=== PATIENT | female | born 1970 | race Caucasian/White ===

== ENCOUNTER 2020-08-06 18:27 | Inpatient (IN) | payer OTHER ==
[2020-08-06 18:48] LABS: BASOPHIL 0.5 % (0-2); EOSINOPHIL 0.1 % (0-5); HCT 33.4 % (37.0-47.0); HGB 11.6 g/dl (12.5-16.0); LYMPHOCYTE 19.4 % (15-48); MCH 31.1 pg (25.0-31.0); MCHC 34.7 g/dL (32.0-36.0); MCV 89.5 fL (78.0-100.0); MPV 8.9 fL (6.0-9.5); NEUTROPHIL 69.6 % (41-80); NRBC 0; PLT 315 K/uL (150-400); RBC 3.73 M/uL (4.20-5.40); RDW 12.2 % (11.5-14.0); WBC 7.4 K/uL (4.0-10.5)
[2020-08-06 18:59] LABS: ALBUMIN 3.1 g/dL (3.4-5.0); BILIRUBIN - TOTAL 0.4 mg/dL (0.2-1.0); BUN/CREAT RATIO (CALC) 12.2 RATIO; CREATININE 0.9 mg/dL (0.51-0.95); GLOBULIN (CALCULATION) 3.6 g/dL; POTASSIUM 4.3 mmol/L (3.5-5.1); TOTAL PROTEIN 6.7 g/dL (6.4-8.2)
[2020-08-06 20:01] LABS: MAGNESIUM 1.6 mg/dL (1.8-2.4); PHOSPHORUS 4.4 mg/dL (2.6-4.7)
[2020-08-06 20:11] LABS: PRO-BNP 303 pg/mL (<125)
[2020-08-06 21:33] LABS: BILIRUBIN NEGATIVE (NEGATIVE); BLOOD 3+ Ery/uL (NEGATIVE); CLARITY CLOUDY (CLEAR); COLOR YELLOW (YELLOW); GLUCOSE (U) NORMAL (NORMAL); LEUKOCYTES 1+ Leu/uL (NEGATIVE); NITRITE POSITIVE (NEGATIVE); PROTEIN 2+ mg/dL (NEGATIVE); SPECIFIC GRAVITY >=1.030 (1.001-1.030); UROBILINOGEN 0.2 mg/dL (0.2-1.0)
[2020-08-06 21:39] LABS: BACTERIA 3+; SQUAMOUS EPITHELIAL CELLS 20-50
[2020-08-06 21:44] LABS: FT4 (FREE T4) 1.3 ng/dL (0.76-1.46)
[2020-08-06] MEDS ORDERED: TRAZODONE 50MG50 MG PO (22:27)
[2020-08-06] MEDS ORDERED: ELAVIL50 MG PO (22:28)
[2020-08-06] MEDS ORDERED: PEPCID AC20 MG PO (22:28)
[2020-08-06] MEDS ORDERED: TOPROL XL 25MG25 MG PO (22:31)
[2020-08-06] MEDS ORDERED: METFORMIN HCL500 MG PO (22:31)
[2020-08-06] MEDS ORDERED: MAGNESIUM500 MG PO (22:32)
[2020-08-06] MEDS ORDERED: ONDANSETRON HCL4 MG PO (22:33)
[2020-08-06] MEDS ORDERED: BASAGLAR K100 UNIT/1 SC (22:34)
[2020-08-06 23:29] LABS: BUN/CREAT RATIO (CALC) 15.2 RATIO; CREATININE 0.79 mg/dL (0.51-0.95); POTASSIUM 4.5 mmol/L (3.5-5.1)
[2020-08-07 03:17] LABS: HCT 28.3 % (37.0-47.0); HGB 9.9 g/dl (12.5-16.0); MCH 30.7 pg (25.0-31.0); MCV 87.6 fL (78.0-100.0); MPV 9.2 fL (6.0-9.5); RBC 3.23 M/uL (4.20-5.40); RDW 11.9 % (11.5-14.0); WBC 5.7 K/uL (4.0-10.5)
[2020-08-07 03:25] LABS: BUN/CREAT RATIO (CALC) 13.9 RATIO; CREATININE 0.79 mg/dL (0.51-0.95); POTASSIUM 4.2 mmol/L (3.5-5.1)
[2020-08-07 03:49] LABS: URINE CREATININE 32.68 mg/dL (29.00-226.00)
[2020-08-07 07:45] LABS: BUN/CREAT RATIO (CALC) 12.5 RATIO; CREATININE 0.72 mg/dL (0.51-0.95)
[2020-08-07 11:12] LABS: BUN/CREAT RATIO (CALC) 10.7 RATIO; CREATININE 0.84 mg/dL (0.51-0.95); POTASSIUM 4.2 mmol/L (3.5-5.1)
[2020-08-07 15:09] LABS: BUN/CREAT RATIO (CALC) 8.9 RATIO; CREATININE 0.79 mg/dL (0.51-0.95); POTASSIUM 4.2 mmol/L (3.5-5.1)
--- NOTE | 2020-08-07 15:57 | NUR ---
08/07/20 Ms. Jovel lives with her mother and adult nephew. She has a rw. 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 She had an outpatient PT appointment in [place] with [facility] and cancelled the appointment due to illness. MS. Jovel will independently reschedule her PT appointment.
[2020-08-07 19:30] LABS: BUN/CREAT RATIO (CALC) 6.8 RATIO; CREATININE 1.03 mg/dL (0.51-0.95); POTASSIUM 3.9 mmol/L (3.5-5.1)
[2020-08-08 01:07] LABS: BUN/CREAT RATIO (CALC) 7.1 RATIO; CREATININE 0.98 mg/dL (0.51-0.95); POTASSIUM 3.9 mmol/L (3.5-5.1)
[2020-08-08 06:51] LABS: BASOPHIL 0.5 % (0-2); EOSINOPHIL 0.2 % (0-5); HCT 26.4 % (37.0-47.0); HGB 9.2 g/dl (12.5-16.0); MCH 31.6 pg (25.0-31.0); MCHC 34.8 g/dL (32.0-36.0); MCV 90.7 fL (78.0-100.0); MONOCYTE 12.4 % (0-12); MPV 8.6 fL (6.0-9.5); NEUTROPHIL 48.7 % (41-80); NRBC 0; PLT 211 K/uL (150-400); RBC 2.91 M/uL (4.20-5.40); RDW 12.3 % (11.5-14.0); WBC 4.3 K/uL (4.0-10.5)
[2020-08-08 07:21] LABS: BUN/CREAT RATIO (CALC) 5.7 RATIO; CREATININE 0.88 mg/dL (0.51-0.95)
[2020-08-08 13:45] LABS: BUN/CREAT RATIO (CALC) 5.9 RATIO; CREATININE 1.01 mg/dL (0.51-0.95); POTASSIUM 3.8 mmol/L (3.5-5.1)
[2020-08-08 19:37] LABS: BUN/CREAT RATIO (CALC) 4.6 RATIO; CREATININE 1.09 mg/dL (0.51-0.95); POTASSIUM 4.1 mmol/L (3.5-5.1)
[2020-08-09 04:00] LABS: BASOPHIL 0.4 % (0-2); EOSINOPHIL 0.2 % (0-5); HCT 26.2 % (37.0-47.0); HGB 8.9 g/dl (12.5-16.0); LYMPHOCYTE 40.1 % (15-48); MCH 31.1 pg (25.0-31.0); MCV 91.6 fL (78.0-100.0); MONOCYTE 12.5 % (0-12); NEUTROPHIL 46.2 % (41-80); NRBC 0; PLT 236 K/uL (150-400); RBC 2.86 M/uL (4.20-5.40); RDW 12.2 % (11.5-14.0); WBC 4.9 K/uL (4.0-10.5)
[2020-08-09 04:20] LABS: BUN/CREAT RATIO (CALC) 5.3 RATIO; CREATININE 0.94 mg/dL (0.51-0.95); POTASSIUM 4.1 mmol/L (3.5-5.1)
[2020-08-09 18:57] LABS: BUN/CREAT RATIO (CALC) 5.9 RATIO; CREATININE 0.85 mg/dL (0.51-0.95); POTASSIUM 3.8 mmol/L (3.5-5.1)
[2020-08-10 06:16] LABS: BUN/CREAT RATIO (CALC) 4.9 RATIO; CREATININE 0.82 mg/dL (0.51-0.95); POTASSIUM 3.8 mmol/L (3.5-5.1)
[2020-08-10] MEDS ORDERED: TOPROL XL 50 MG50 MG PO (07:26)
== END 2020-08-10 10:55 | disposition home or self-care (01) | DRG 641 ==
LOC: FER 18:27 → FICU 21:23 → FMS 08-07 08:54
PROVIDERS: Emergency Medicine; Emergency Medicine Emergency Medical Services; Hospitalist; Internal Medicine Nephrology; ADMIT Allergy & Immunology Allergy
DX: E87.1 Hypo-osmolality and hyponatremia (principal); N39.0 Urinary tract infection, site not specified; L97.518 Non-pressure chronic ulcer of other part of right foot with other specified severity; E83.42 Hypomagnesemia; R11.2 Nausea with vomiting, unspecified; R19.7 Diarrhea, unspecified; M10.9 Gout, unspecified; K21.9 Gastro-esophageal reflux disease without esophagitis; Z20.822 Contact with and (suspected) exposure to COVID-19; I11.0 Hypertensive heart disease with heart failure; I50.9 Heart failure, unspecified; E11.621 Type 2 diabetes mellitus with foot ulcer; E86.9 Volume depletion, unspecified; B96.1 Klebsiella pneumoniae [K. pneumoniae] as the cause of diseases classified elsewhere
CPT/HCPCS: 36415; 70450; 71045; 80048; 80053; 81001; 82570; 83735; 83880; 83935; 84100; 84133; 84145; 84300; 84439; 84443; 84484; 85025; 85379; 87040; 87076; 87088; 87186; 93005; 94010; 97110; 97162; 97166; 97530-GP; 97535; J0692; J1200; J1650; J2405; J3475; J7030; J7070; U0002

== ENCOUNTER → 2022-03-10 | Day surgery (SDC) | payer OTHER ==
[~2022-03-10] VITALS: Ht 182.9 cm; Wt 73.7 kg
[~2022-03-10] MED LIST: ATORVASTATIN CA10 MG PO; BASAGLAR K100 UNIT/1 SC; ELAVIL50 MG PO; GABAPENTIN600 MG PO; LANTUS SOL100 UNIT/1 SC; LASIX40 MG PO; LISINOPRIL5 MG PO; MAGNESIUM500 MG PO; METFORMIN HCL500 MG PO; ONDANSETRON HCL4 MG PO; OZEMPIC1 MG/0.71 SC; PEPCID AC20 MG PO; TOPROL XL 25MG25 MG PO; TOPROL XL 50 MG50 MG PO; TRAZODONE 50MG50 MG PO
[2022-03-10 08:42] LABS: HCT 41.8 % (37.0-47.0); HGB 14.6 g/dl (12.5-16.0); MCH 30.2 pg (25.0-31.0); MCHC 34.9 g/dL (32.0-36.0); MCV 86.4 fL (78.0-100.0); MPV 9.1 fL (6.0-9.5); RBC 4.84 M/uL (4.20-5.40); RDW 13.1 % (11.5-14.0); WBC 8.9 K/uL (4.0-10.5)
[2022-03-10 08:53] LABS: ALBUMIN 4.1 g/dL (3.4-5.0); BILIRUBIN - TOTAL 0.4 mg/dL (0.2-1.0); BUN/CREAT RATIO (CALC) 13.1 RATIO; CREATININE 0.61 mg/dL (0.51-0.95); GLOBULIN (CALCULATION) 3.5 g/dL; POTASSIUM 3.3 mmol/L (3.5-5.1); TOTAL PROTEIN 7.6 g/dL (6.4-8.2)
== END | disposition home or self-care (01) ==
LOC: FAS 08:03
PROVIDERS: Surgery
DX: Z12.11 Encounter for screening for malignant neoplasm of colon (principal); K57.30 Diverticulosis of large intestine without perforation or abscess without bleeding; K63.89 Other specified diseases of intestine; K58.9 Irritable bowel syndrome, unspecified; I25.10 Atherosclerotic heart disease of native coronary artery without angina pectoris; E78.5 Hyperlipidemia, unspecified; I12.9 Hypertensive chronic kidney disease with stage 1 through stage 4 chronic kidney disease, or unspecified chronic kidney disease; E11.22 Type 2 diabetes mellitus with diabetic chronic kidney disease; N18.9 Chronic kidney disease, unspecified; E11.40 Type 2 diabetes mellitus with diabetic neuropathy, unspecified; Z87.891 Personal history of nicotine dependence
CPT/HCPCS: 36415; 80053; J1610; J2250; J2704; J7120